=== PATIENT | female | born 1990 | race African-American/Black ===

== ENCOUNTER 2018-06-05 21:14 | Outpatient (CLI) | payer SELFPAY | END 2018-06-05 21:15 | disposition EMS.NT | LOC: EMS 21:14 | PROVIDERS: ATTEND Surgery | DX: O20.9 Hemorrhage in early pregnancy, unspecified (principal); Z3A.08 8 weeks gestation of pregnancy ==

== ENCOUNTER 2018-06-05 21:48 | Emergency (ER) | payer OTHER ==
[2018-06-05 22:33] LABS: BILIRUBIN,URINE NEGATIVE (NEGATIVE); GLUCOSE, URINE (UA) NEGATIVE (NEGATIVE); KETONES,URINE (UA) NEGATIVE (NEGATIVE); LEUKOCYTE ESTERASE, URINE TRACE (NEGATIVE); NITRITE,URINE NEGATIVE (NEGATIVE); OCCULT BLOOD,URINE LARGE (NEGATIVE); PH,URINE 6.5 PH (5.0-7.5); PROTEIN,URINE NEGATIVE (NEGATIVE); UROBILINOGEN,URINE 0.2 (NORMAL) E.U./dL (NORMAL)
[2018-06-05 22:36] LABS: CLARITY,URINE HAZY (CLEAR); HCG UR QUAL POSITIVE
[2018-06-05 22:52] LABS: BACTERIA,URINE Many /HPF (None Seen); SQUAMOUS EPITHELIAL CELL,UR MANY Squamous (<= Few)
--- NOTE | 2018-06-05 23:48 | ED Physician Documentation ---
PD HPI FEMALE - Stated complaint Stated Complaint: 8 WKS/BLEED - Chief complaint Chief Complaint: Abd Pain - History obtained from History obtained from: Patient - History of Present Illness Timing - onset: Enter time (21:00), Today Timing - details: Abrupt onset Pain level max: 0 Pain level max: 0 Associated symptoms: Vaginal bleeding Contributing factors: OB-ASSEMBLING INSPECTOR History: G (4), P (1021), Miscarriage(s) (2) Similar symptoms before: Has not had sx before Recently seen: Not recently seen - Additional information Additional information: approximately 8 weeks . vaginal spotting since 9 PM Review of Systems Constitutional: reports: Reviewed and negative GI: denies: Abdominal Pain : reports: Vaginal bleeding. denies: Dysuria, Frequency PD PAST MEDICAL HISTORY - Past Medical History Cardiovascular: None Respiratory: None Neuro: None Endocrine/Autoimmune: None GI: None ASSEMBLING INSPECTOR: None : None HEENT: None Psych: None Musculoskeletal: None Derm: None - Past Surgical History Past Surgical History: Yes /ASSEMBLING INSPECTOR: section - Allergies Allergies/Adverse Reactions: Allergies Allergy/AdvReac Type Severity Reaction Status Date / Time No Known Drug Allergies Allergy Verified 06/05/18 22:00 - Social History Does the pt smoke?: No Smoking Status: Never smoker Does the pt drink ETOH?: No Does the pt have substance abuse?: No - Immunizations Immunizations are current?: Yes - POLST Patient has POLST: No PD ED PE NORMAL - Vitals Vital signs reviewed: Yes - General General: Alert and oriented X 3, No acute distress, Well developed/nourished - Cardiac Cardiac: RRR, No murmur - Respiratory Respiratory: No respiratory distress, Clear bilaterally - Abdomen Abdomen: Normal bowel sounds, Soft, Non tender, Non distended - Back Back: No CVA TTP Results - Vitals Vitals: Oxygen O2 Source Room air - Labs Labs: Laboratory Tests 06/05/18 22:20 Urine Color YELLOW Urine Clarity HAZY Urine pH 6.5 Ur Specific [place] 1.025 Urine Protein NEGATIVE Urine Glucose (UA) NEGATIVE Urine Ketones NEGATIVE Urine Occult Blood LARGE H Urine Nitrite NEGATIVE Urine Bilirubin NEGATIVE Urine Urobilinogen 0.2 (NORMAL) Ur Leukocyte Esterase TRACE H Urine RBC 11-25 H Urine WBC 4-5 Ur Squamous Epith Cells MANY Squamous H Urine Bacteria Many H Ur Microscopic Review INDICATED Urine Culture Comments NOT INDICATED Urine HCG, Qual POSITIVE - Rads (name of study) pelvic US Radiology: Prelim report reviewed, See rad report PD MEDICAL DECISION MAKING - ED course Complexity details: reviewed results, re-evaluated patient, considered differential, d/w patient Departure - Departure Disposition: 01 Home, Self Care Clinical Impression: Threatened , Uterine fibroids affecting in first trimester Condition: Good Instructions: ED Miscarriage Poss, ED Fibroids Follow-Up: [facility] [Provider Group] Discharge Date/Time: 06/06/18 03:05
--- NOTE | 2018-06-06 01:34 | Ultrasound Report ---
Reason: , vaginal bleeding Procedure Date: 06/06/2018 Accession Number: [id number] / [id number] Procedure: US - OB First Trimester CPT Code: FULL RESULT: EXAM: FIRST TRIMESTER OBSTETRIC ULTRASOUND (Less than 11 weeks) EXAM DATE: 06/06/2018 12:17 AM. CLINICAL HISTORY: , vaginal bleeding. LMP: Unknown. COMPARISONS: None. TECHNIQUE: Transabdominal and transvaginal ultrasound examination with static image documentation. CLINICAL DATES: EGA 7 weeks 4 days with LUBA 01/19/2019 based on LMP 04/14/2018. ASSESSMENT: Gestational Sac: Single intrauterine. Mean gestational sac diameter: 27 mm = . Embryo: CRL (crown-rump length) 10 mm = 7 weeks 0 days. Cardiac activity: 145 beats per minute. Yolk sac: 3.5 mm. Amniotic fluid: Not accurately assessed at this gestational age. Early placenta: Not visible at this gestational age. Other: No perigestational fluid collection demonstrated. MATERNAL STRUCTURES: Uterus: Anteverted. There is an intramural fibroid in the lower uterine segment towards the left measuring 6.6 x 6.5 x 5.7 cm. Within this fibroid there is cystic change measuring 1.4 x 1.6 x 1.4 cm. In addition, the right lateral aspect of the uterus there is a fibroid measuring 2 x 1.5 x 1.9 cm.. Cervix: Closed. Right Ovary/Adnexa: The ovary measures 5.1 x 1.8 x 1.8 cm, volume 8.8 cc. Unremarkable. Left Ovary/Adnexa: The ovary measures 3.5 x 3 x 2.4 cm, volume 13.1 cc. There is a cyst associated with the left ovary measuring 2.2 x 1.3 x 1.2 cm. Free Fluid: None. Other: None. IMPRESSION: 1. Single viable intrauterine at EGA 7 weeks 0 days with LUBA 01/23/2019 based on [place]-Rump Length, which is concordant with clinical dates. 2. Uterine fibroids 1 of which is large with some cystic change. RADIA
[2018-06-06 02:13] VITALS: BP 108/52
== END 2018-06-06 03:05 | disposition home or self-care (01) ==
LOC: ED 21:48
DX: O20.0 Threatened abortion (principal); O34.11 Maternal care for benign tumor of corpus uteri, first trimester; D25.9 Leiomyoma of uterus, unspecified; Z3A.08 8 weeks gestation of pregnancy
CPT/HCPCS: 76801; 76817; 81001; 81003; 81025; 87086; 99283

== ENCOUNTER 2018-07-12 11:22 | Emergency (ER) | payer OTHER ==
[2018-07-12 11:29] VITALS: BP 131/76
[2018-07-12 11:49] LABS: BASOPHILS # (AUTO) 0.1 10^3/uL (0.0-0.1); BASOPHILS % (AUTO) 0.5 %; EOSINOPHILS # (AUTO) 0.1 10^3/uL (0.0-0.7); EOSINOPHILS % (AUTO) 0.7 %; LYMPHOCYTES # (AUTO) 2.3 10^3/uL (1.5-3.5); LYMPHOCYTES % (AUTO) 20.6 %; MEAN CORPUSCULAR HGB CONC 32.5 g/dL (32.0-36.0); MEAN PLATELET VOLUME 9.6 fL (7.9-10.8); MONOCYTES # (AUTO) 0.6 10^3/uL (0.0-1.0); MONOCYTES % (AUTO) 5.7 %; NEUTROPHILS # (AUTO) 8.1 10^3/uL (1.5-6.6); NEUTROPHILS % (AUTO) 72.5 %; PLT - PLATELET COUNT 152 10^3/uL (130-450); RED BLOOD COUNT 4.83 10^6/uL (4.20-5.40); RED CELL DISTRIBUTION WIDTH 20.3 % (12.0-15.0); WHITE BLOOD COUNT 11.2 x10^3/uL (4.8-10.8)
[2018-07-12 12:06] LABS: ALBUMIN 3.4 g/dL (3.2-5.5); ALBUMIN/GLOBULIN RATIO 0.9 (1.0-2.2); BILIRUBIN,TOTAL 0.4 mg/dL (0.2-1.0); CALCIUM 9.4 mg/dL (8.5-10.3); CREATININE 0.6 mg/dL (0.4-1.0); TOTAL PROTEIN 7.2 g/dL (6.7-8.2)
--- NOTE | 2018-07-12 12:27 | ED Physician Documentation ---
History of Present Illness - Stated complaint Stated Complaint: 13 WKS PREG/BLEEDING - Chief complaint Chief Complaint: Abd Pain - History obtained from History obtained from: Patient - History of Present Illness Timing: Today (This is a G4, P1 with known blood type of O+, who presents with vaginal bleeding similar to her menses today associated very mild left pelvic cramping. She was recently diagnosed with a UTI and is starting her antibiotics today. Denies flank pain, back pain, fevers, nausea.) Review of Systems Constitutional: denies: Fever, Chills Nose: denies: Rhinorrhea / runny nose, Congestion Throat: denies: Sore throat Cardiac: denies: Chest pain / pressure, Palpitations Respiratory: denies: Dyspnea PD PAST MEDICAL HISTORY - Past Medical History Cardiovascular: None Respiratory: None Neuro: None Endocrine/Autoimmune: None GI: None INSTRUMENT REPAIRER: None : None HEENT: None Psych: None Musculoskeletal: None Derm: None - Past Surgical History Past Surgical History: Yes /INSTRUMENT REPAIRER: section - Allergies Allergies/Adverse Reactions: Allergies Allergy/AdvReac Type Severity Reaction Status Date / Time No Known Drug Allergies Allergy Verified 07/12/18 11:29 - Social History Does the pt smoke?: No Smoking Status: Never smoker Does the pt drink ETOH?: No Does the pt have substance abuse?: No - Immunizations Immunizations are current?: Yes - POLST Patient has POLST: No PD ED PE NORMAL - Vitals Vital signs reviewed: Yes - General General: Alert and oriented X 3, No acute distress - Abdomen Abdomen: Normal bowel sounds, Soft, Non tender - Female Female : Other (Pelvic ultrasound demonstrates single live intrauterine with a heart rate of 160 and positive motion.) - Neuro Neuro: Alert and oriented X 3, Normal speech - Psych Psych: Normal mood, Normal affect Results - Vitals Vitals: Vital Signs - 24 hr 07/12/18 11:25 Temperature 36.8 C Heart Rate 80 Respiratory 18 Rate Blood Pressure 131/76 H O2 Saturation 100 Oxygen O2 Source Room air - Labs Labs: Laboratory Tests 07/12/18 07/12/18 07/12/18 11:41 11:41 11:41 WBC 11.2 H RBC 4.83 Hgb 13.0 Hct 40.1 MCV 83.0 MCH 27.0 MCHC 32.5 RDW 20.3 H Plt Count 152 MPV 9.6 Neut # (Auto) 8.1 H Lymph # (Auto) 2.3 [place] # (Auto) 0.6 Eos # (Auto) 0.1 Baso # (Auto) 0.1 Absolute Nucleated RBC 0.00 Nucleated RBC % 0.0 Sodium 133 L Potassium 3.7 Chloride 102 Carbon Dioxide 23 Anion Gap 8.0 BUN 9 Creatinine 0.6 Estimated GFR (MDRD) 145 Glucose 91 Calcium 9.4 Total Bilirubin 0.4 AST 18 ALT 17 Alkaline Phosphatase 43 Total Protein 7.2 Albumin 3.4 Globulin 3.8 Albumin/Globulin Ratio 0.9 L Lipase 29 Blood Type O POSITIVE Departure - Departure Disposition: 01 Home, Self Care Clinical Impression: Threatened Condition: Good Record reviewed to determine appropriate education?: Yes Instructions: ED Miscarriage Poss Comments: As discussed the fetus looks fine on ultrasound today so your risk of miscarriage is low. Fill and start the antibiotics that your physician gave you for the bladder infection. Return for new or worsening symptoms.
== END 2018-07-12 12:35 | disposition home or self-care (01) ==
LOC: ED 11:22
DX: O20.0 Threatened abortion (principal); Z3A.13 13 weeks gestation of pregnancy
CPT/HCPCS: 36415; 80053; 83690; 84702; 85025; 86900; 86901; 99282; 99283

== ENCOUNTER 2018-08-14 07:50 | Emergency (ER) | payer OTHER ==
--- NOTE | 2018-08-14 09:15 | ED Physician Documentation ---
PD HPI FEMALE - Stated complaint Stated Complaint: FEMALE /17 WEEKS - Chief complaint Chief Complaint: General - History obtained from History obtained from: Patient - History of Present Illness Timing - onset: How many days ago (6) Timing - duration: Days (6) Timing - details: Gradual onset, Still present Associated symptoms: Pelvic pain, Vaginal discharge, Dysuria Contributing factors: , Not sexually active. No: Exposed to STD Similar symptoms before: Diagnosis (UTI and trich) Recently seen: Clinic - Additional information Additional information: 27 y/o female is 17 wks and she has been treated for trich with metronidazole and after she finished this she developed a discharge that was initially clear and has turned to yellow/white discharge that is foul smelling. She reports that there is pain in the lower abdomen that is "tight" and tomlinson when she moves. PD PAST MEDICAL HISTORY - Past Medical History Cardiovascular: None Respiratory: None Neuro: None Endocrine/Autoimmune: None GI: None CAPTAIN/CHECK AIRMAN: None : None HEENT: None Psych: None Musculoskeletal: None Derm: None - Past Surgical History Past Surgical History: Yes /CAPTAIN/CHECK AIRMAN: section - Present Medications Home Medications: Ambulatory Orders Medication Instructions Recorded Confirmed Nitrofurantoin Monohyd/M-Cryst 100 mg PO BID #10 capsule 08/14/18 [Macrobid 100 mg Capsule] - Allergies Allergies/Adverse Reactions: Allergies Allergy/AdvReac Type Severity Reaction Status Date / Time No Known Drug Allergies Allergy Verified 08/14/18 08:14 - Social History Does the pt smoke?: No Smoking Status: Never smoker Does the pt drink ETOH?: No Does the pt have substance abuse?: No - Immunizations Immunizations are current?: Yes - POLST Patient has POLST: No PD ED PE NORMAL - Vitals Vital signs reviewed: Yes (normal ) - General General: Alert and oriented X 3, No acute distress, Well developed/nourished - HEENT HEENT: Atraumatic, PERRL, EOMI - Neck Neck: Supple, no meningeal sign - Cardiac Cardiac: RRR, No murmur - Respiratory Respiratory: No respiratory distress, Clear bilaterally - Abdomen Abdomen: Soft, Other (mild suprapubic tenderness and fullness) - Back Back: No CVA TTP, No spinal TTP - Derm Derm: Normal color, Warm and dry, No rash - Extremities Extremities: No deformity, No edema - Neuro Neuro: Alert and oriented X 3, surgeon's assistant 2-12 intact, No motor deficit, No sensory deficit, Normal speech Eye Opening: Spontaneous Motor: Obeys Commands Verbal: Oriented GCS Score: 15 - Psych Psych: Normal mood, Normal affect Results - Vitals Vitals: Vital Signs - 24 hr 08/14/18 08:07 Temperature 36.9 C Heart Rate 82 Respiratory 14 Rate Blood Pressure 136/75 H O2 Saturation 99 Oxygen O2 Source Room air - Labs Labs: Laboratory Tests 08/14/18 09:31 Urine Color YELLOW Urine Clarity [place]. CLOUDY Urine pH 7.5 Ur Specific [place] 1.010 Urine Protein NEGATIVE Urine Glucose (UA) NEGATIVE Urine Ketones NEGATIVE Urine Occult Blood NEGATIVE Urine Nitrite NEGATIVE Urine Bilirubin NEGATIVE Urine Urobilinogen 0.2 (NORMAL) Ur Leukocyte Esterase LARGE H Urine RBC None Seen Urine WBC 6-10 H Ur Squamous Epith Cells FEW Squamous Amorphous Sediment Few Urine Bacteria Few Ur Microscopic Review INDICATED Urine Culture Comments INDICATED Procedures - Bedside sono Bedside sono by EMP: With the use of bedside ultrasound the pelvis is imaged there is a single viable fetus with a heart rate of 156 and a biparietal diameter suggesting an age of 17 weeks 4 days. PD MEDICAL DECISION MAKING - ED course Complexity details: reviewed results, re-evaluated patient, considered differential, d/w patient ED course: 27 y/o female 17 wks with lower abdomen pain has UTI. We will use macrobid and she has followup with CAPTAIN/CHECK AIRMAN this week. Departure - Departure Disposition: 01 Home, Self Care Clinical Impression: Urinary tract infection Qualifiers: Urinary tract infection type: acute cystitis Hematuria presence: without hematuria Qualified Code(s): N30.00 - Acute cystitis without hematuria Instructions: ED UTI Cystitis Female Follow-Up: ARIEL LEE [Primary Care Provider] - Prescriptions: Nitrofurantoin Monohyd/M-Cryst [Macrobid 100 mg Capsule] 100 mg PO BID #10 capsule
[2018-08-14 09:35] LABS: BILIRUBIN,URINE NEGATIVE (NEGATIVE); GLUCOSE, URINE (UA) NEGATIVE (NEGATIVE); KETONES,URINE (UA) NEGATIVE (NEGATIVE); LEUKOCYTE ESTERASE, URINE LARGE (NEGATIVE); NITRITE,URINE NEGATIVE (NEGATIVE); OCCULT BLOOD,URINE NEGATIVE (NEGATIVE); PH,URINE 7.5 PH (5.0-7.5); PROTEIN,URINE NEGATIVE (NEGATIVE); UROBILINOGEN,URINE 0.2 (NORMAL) E.U./dL (NORMAL)
[2018-08-14 09:36] LABS: CLARITY,URINE SL. CLOUDY (CLEAR)
[2018-08-14 09:41] LABS: AMORPHOUS SEDIMENT,UR Few /LPF; BACTERIA,URINE Few /HPF (None Seen); RBC,URINE None Seen /HPF (0-5); SQUAMOUS EPITHELIAL CELL,UR FEW Squamous (<= Few)
[2018-08-14 10:28] VITALS: BP 137/74
== END 2018-08-14 10:26 | disposition home or self-care (01) ==
LOC: ED 07:50
DX: O23.12 Infections of bladder in pregnancy, second trimester (principal); N30.00 Acute cystitis without hematuria; Z3A.17 17 weeks gestation of pregnancy
CPT/HCPCS: 81001; 81003; 87086; 87181; 99282; 99283

== ENCOUNTER 2018-11-26 09:31 | Outpatient (CLI) | payer OTHER ==
[2018-11-26 10:58] LABS: BASOPHILS % (AUTO) 0.2 %; EOSINOPHILS % (AUTO) 0.9 %; HGB - HEMOGLOBIN 13.2 g/dL (12.0-16.0); LYMPHOCYTES % (AUTO) 21.7 %; MEAN CORPUSCULAR HEMOGLOBIN 30.2 pg (27.0-31.0); MEAN CORPUSCULAR VOLUME 88.8 fL (81.0-99.0); MEAN PLATELET VOLUME 13.2 fL (7.9-10.8); MONOCYTES % (AUTO) 6.8 %; NEUTROPHILS % (AUTO) 69.7 %; PLT - PLATELET COUNT 109 10^3/uL (130-450); RED BLOOD COUNT 4.37 10^6/uL (4.20-5.40); RED CELL DISTRIBUTION WIDTH 13.6 % (12.0-15.0); WHITE BLOOD COUNT 8.4 x10^3/uL (4.8-10.8)
[2018-11-26 10:59] LABS: ABNORMAL LYMPHS % (MANUAL) 0 %; BAND NEUTROPHILS % (MANUAL) 0 %
[2018-11-26 11:16] LABS: BASOPHILS # (MANUAL) 0.1 10^3/uL (0-0.1); BASOPHILS % (MANUAL) 1 %; EOSINOPHILS # (MANUAL) 0.2 10^3/uL (0-0.7); LYMPHOCYTES # (MANUAL) 1.9 10^3/uL (1.5-3.5); LYMPHOCYTES % (MANUAL) 23 %; MONOCYTES # (MANUAL) 0.5 10^3/uL (0.0-1.0); PLATELET ESTIMATE, MANUAL DECREASED (<130,000) (NORMAL); PLATELET MORPHOLOGY NORMAL APPEARANCE (NORMAL); RBC MORPHOLOGY (MULTIPLE) NORMAL APPEARANCE (NORMAL)
[2018-11-26 11:17] LABS: RUPTURE OF MEMBRANES PLUS NEGATIVE (NEGATIVE)
[2018-11-26 11:17] LABS: DIFFERENTIAL COMMENT MANUAL DIFFERENTIAL
[2018-11-26 11:19] LABS: CREATININE,URINE 54.9 mg/dL
[2018-11-26 11:20] LABS: ALBUMIN 2.9 g/dL (3.2-5.5); ALBUMIN/GLOBULIN RATIO 0.9 (1.0-2.2); ALKALINE PHOSPHATASE 68 IU/L (42-121); ALT ALANINE AMINOTRANSFERASE 15 IU/L (10-60); AST ASPARTATE AMINOTRANSFERASE 16 IU/L (10-42); BILIRUBIN,TOTAL 0.3 mg/dL (0.2-1.0); BUN - BLOOD UREA NITROGEN < 5 mg/dL (6-20); CARBON DIOXIDE - CO2 25 mmol/L (21-32); CHLORIDE 109 mmol/L (101-111); CREATININE 0.5 mg/dL (0.4-1.0); GFR - MDRD 178 (>89); GLUCOSE 99 mg/dL (70-100); MAGNESIUM 1.7 mg/dL (1.7-2.8); SODIUM 141 mmol/L (135-145); TOTAL PROTEIN 6.3 g/dL (6.7-8.2)
[2018-11-26 11:22] LABS: TOTAL PROTEIN,URINE TIMED < 6 mg/dL
--- NOTE | 2018-11-26 14:48 | Ultrasound Report ---
Reason: cramping, bleeding, leaking fluid Procedure Date: 11/26/2018 Accession Number: [id number] / [id number] Procedure: US - OB Limited CPT Code: FULL RESULT: EXAM: LIMITED OBSTETRICAL ULTRASOUND EXAM DATE: 11/26/2018 12:51 PM. CLINICAL HISTORY: Cramping, bleeding, leaking fluid. COMPARISON: OB FIRST TRIMESTER 06/06/2018 12:16 AM. TECHNIQUE: Real-time sonographic evaluation of the fetus performed by the media aid. Multiple goodwill representative static images were saved for review. Additional transvaginal imaging to more accurately evaluate cervical length/placental position/etc. DATING: Established EGA 32 weeks 2 days with LUBA 01/19/2019. GENERAL EVALUATION Conti . Cardiac activity: 136 bpm. Presentation: Cephalic. Placenta: Anterior position. Amniotic fluid: Within normal limits. SHAHZAD 22.1 cm. MVP 9.2 cm. ANATOMY Not assessed MATERNAL STRUCTURES Cervix: Closed length of 3.7 cm. Minimal V-shaped funneling suggested with 8 mm length. Small nabothian cyst noted. At the left aspect of the uterus there is a hypoechoic mildly heterogeneous soft tissue mass lesion measuring 9.6 x 7.6 x 8.7 cm. This is consistent with a fibroid. IMPRESSION: 1. Mild cervical funneling with 8 mm length. Closed cervical length of 3.7 cm. 2. Cephalic presentation for this single IUP with appropriate amniotic fluid. 3. Unremarkable anterior placenta. 4. Large left uterine fibroid. RADIA
[2018-11-26 15:30] VITALS: BP 135/80
--- NOTE | 2018-12-12 23:47 | PROVIDER PROGRESS NOTE ---
- HPI Chief Complaint: Other (Patient is a 28-year-old G3, P1 at 32 weeks and 2 days estimated gestational age with a complicated by history of prior C- section/P PROM at 35 weeks / 17-week loss/8 cm lower uterine fibroids/electrolyte abnormality/thrombocytopenia here with loss of fluid per vagina. Also has a history of trichomonas diagnosed this . Patient is followed by Haley Perez MD at [place] CREDIT REPRESENTATIVE. She was a late transfer of care from [place]. Patient reports loss of fluid per vagina earlier today. Mi ld vaginal bleeding. No cramping. No continued loss of fluid.) Current : Current EDU 01/19/19 Gestation 32 Weeks and 2 Days 3 Para 1 Vital Signs Temperature 98.2 F 11/26/18 09:53 Heart Rate 102 H 11/26/18 09:53 Respiratory Rate 18 11/26/18 09:53 Blood Pressure 137/79 H 11/26/18 09:53 O2 Saturation 100 11/26/18 09:53 Temperature 98.1 F 11/26/18 12:00 Heart Rate 98 11/26/18 12:00 Respiratory Rate 18 11/26/18 12:00 Blood Pressure 135/80 H 11/26/18 12:00 O2 Saturation 100 11/26/18 12:00 - Procedures OB Procedure Performed: NST Diagnosis/Indication for NST: labor NST Procedure: NST Procedure Start Date 11/26/18 Start Time 09:40 Patient States Movement Yes EFM 135 moderate variability 15 beat 15 x 15 accelerations no decelerations [place]: Quiet Service Date of procedure: 11/26/18 Findings: Patient is a 23-year-old G3, P1 at 32 weeks 2 days estimated gestational age here for assessments of potential ruptured membranes. Patient has a history of PPROM at 35 weeks delivered via . also complicated by thrombocytopenia, electrolyte abnormalities, and trichomonas earlier this . She also has an 8 cm fibroid in the lower uterine segment. Blood pressures were in the high normal range. GEN: NAD ABD: gravid, S&NT S=D Sterile speculum exam shows cervix to be visually long closed and without lesion or discharge or VB. Negative for pooling/ negative nitrazine. SVE closed long and high ROM plus negative FFM negative PIH labs negative other than platelets 109. Potassium was 3.1 Formal ultrasound showed SHAHZAD 22.1. TV CL 3.[address]/vaginitis panel pending Cat I tracing. No evidence of contractions on toco. Serial blood pressure checks did not show any blood pressures with an hypertensive range. [facility] labs were sent and were normal. Reassuring physical exam. Ultrasound and fibronectin reassuring with regard to lack of labor. Thrombocytopenia being managed by primary OB Patient made aware of hypokalemia. Has supplementation available to her at home. Warning signs reviewed. Patient discharged home with follow-up with primary OB. A total of 30 minutes was spent with this patient, of which more than 50% was spent in [id number] student counselor
== END 2018-11-26 15:10 | disposition home or self-care (01) ==
LOC: WFO 09:31 → FBP 09:33 → WFO 15:10
PROVIDERS: ATTEND Obstetrics & Gynecology
DX: O09.213 Supervision of pregnancy with history of pre-term labor, third trimester (principal); O34.219 Maternal care for unspecified type scar from previous cesarean delivery; O34.13 Maternal care for benign tumor of corpus uteri, third trimester; D25.9 Leiomyoma of uterus, unspecified; O99.113 Other diseases of the blood and blood-forming organs and certain disorders involving the immune mechanism complicating pregnancy, third trimester; D69.6 Thrombocytopenia, unspecified; O99.283 Endocrine, nutritional and metabolic diseases complicating pregnancy, third trimester; E87.6 Hypokalemia; Z3A.32 32 weeks gestation of pregnancy; Z86.19 Personal history of other infectious and parasitic diseases
CPT/HCPCS: 36415; 59025; 76815; 76817; 80053; 82570; 82731; 83735; 84112; 84156; 85025; 99214

== ENCOUNTER 2018-12-14 09:01 | Outpatient (CLI) | payer OTHER ==
--- NOTE | 2018-12-14 10:19 | PROVIDER PROGRESS NOTE ---
- HPI Chief Complaint: Labor Check Current : Current EDU 01/19/19 Gestation 34 Weeks and 6 Days 4 Para 1 Vital Signs Temperature 36.9 C 12/14/18 09:20 Heart Rate 88 12/14/18 09:20 Respiratory Rate 18 12/14/18 09:20 Blood Pressure 123/76 12/14/18 09:20 O2 Saturation 100 12/14/18 09:20 Temperature 36.9 C 12/14/18 09:20 Heart Rate 88 12/14/18 09:20 Respiratory Rate 18 12/14/18 09:20 Blood Pressure 123/76 12/14/18 09:20 O2 Saturation 100 12/14/18 09:20 The patient came to labor and delivery for labor check. She has had a previous .She is being followed by [facility]. She denies any vaginal bleeding or fluid.She thought she might be mellissa at home. - Exam Heart: Heart has a regular rate and rhythm without murmur, S3-S4 gallop rhythms Lungs: Lungs clear to auscultation bilaterally without wheezes, rales or rhonchi Abdomen: The abdomen is soft, pliable and nontender. The uterus is soft and nontender. It is gravid. External monitor: No contractions on the monitor are noted. The fetus is noted to have excellent reactivity. On my orders the nurses have checked her cervix and found her to be thick posterior and closed. The fetus is still very high. - Procedures NST Procedure: NST Procedure Start Time 09:40 - Plan Plan: Impression: Intrauterine at 34 weeks 6 days gestation Previous section False labor The nurses will recheck her cervix in the next hour. As long as there are no changes she will be allowed to discharged home. She does have an appointment already with her OB at [facility] tomorrow. She will follow-up with this. She will also call them if she has any further problems.
[2018-12-14 11:32] VITALS: BP 116/73
== END 2018-12-14 11:30 | disposition home or self-care (01) ==
LOC: WFO 09:01 → FBP 09:04 → WFO 11:30
PROVIDERS: ATTEND Obstetrics & Gynecology
DX: O47.03 False labor before 37 completed weeks of gestation, third trimester (principal); O34.219 Maternal care for unspecified type scar from previous cesarean delivery; Z3A.34 34 weeks gestation of pregnancy
CPT/HCPCS: 99213